=== PATIENT | female | born 1960 | race African-American/Black ===

== ENCOUNTER 2017-08-25 17:01 | Emergency (ER) | payer MEDICAID ==
[~2017-08-25] VITALS: Ht 180.3 cm; Wt 73.0 kg
[2017-08-25] MEDS ORDERED: DIAZEPAM 5 MG TABLET PO ONE (20:15)
[2017-08-25] MEDS ORDERED: MORPHINE SULFATE 10 MG/ML CPJ IV ONE (20:45)
[2017-08-25 23:20] LABS: BASOPHILS % 1.2 % (0.0-2.0); EOSINOPHILS % 3.1 % (0.0-5.0); HEMOGLOBIN. 15.6 g/dL (12.0-16.0); LYMPHOCYTES % 35.3 % (20.0-50.0); MEAN CORPUSCULAR HEMOGLOBIN 31.4 pg (28.0-32.0); MEAN CORPUSCULAR VOLUME 94.7 fL (81.0-99.0); MONOCYTES % 9.2 % (2.0-8.0); NEUTROPHILS % 51.2 % (40.0-76.0); PLATELET 147 x1000/uL (130-400); RED BLOOD CELL COUNT 4.97 mill/uL (4.2-5.4); RED CELL DISTRIBUTION WIDTH 13.2 % (11.6-14.6)
[2017-08-25 23:25] LABS: CHLORIDE 109 mEq/L (98-107)
[2017-08-26] MEDS ORDERED: KETAMINE HCL 50 MG/ML 10ML IV SCH
[2017-08-26 04:13] VITALS: BP 159/70
== END 2017-08-26 04:35 | disposition short-term general hospital (02) ==
LOC: ER 17:01
DX: S03.00XA Dislocation of jaw, unspecified side, initial encounter (principal); F17.200 Nicotine dependence, unspecified, uncomplicated; X58.XXXA Exposure to other specified factors, initial encounter; Y93.89 Activity, other specified; Y92.89 Other specified places as the place of occurrence of the external cause; Y99.8 Other external cause status
CPT/HCPCS: 21480; 36415; 70486; 80048; 85025; 96374; 99152; 99285; J2270; J3490; Z7610